=== PATIENT | male | born 1945 ===

== ENCOUNTER 2018-01-05 15:34 | Emergency (ER) | payer OTHER ==
--- NOTE | 2018-01-05 17:01 | RAD ---
PROCEDURE: Left Knee Radiographs. HISTORY: Posttraumatic pain. COMPARISON: None. FINDINGS: BONES: Normal. No fracture. JOINTS: Normal. No osteoarthritis. JOINT EFFUSION: No acute fracture large suprapatellar joint effusion. OTHER FINDINGS: None. IMPRESSION: No acute osseous or articular abnormalities. Large joint effusion
[2018-01-05] MEDS ORDERED: Bacitracin OINT 15GM TOP STA (17:19)
--- NOTE | 2018-01-05 17:28 | ED PDOC ---
HPI: Trauma/Fall - HPI Time Seen by Provider: 01/05/18 16:00 Chief Complaint (Nursing): Lower Extremity Problem/Injury Chief Complaint (Provider): Lower Extremity Problem/Injury History Per: Patient History/Exam Limitations: no limitations Injury Occurred (Timing): Just Before Arrival Additional Complaint(s): 72 year old male reports injuring his left knee and sustaining abrasions to his left elbow when he slipped and fell at work at [employer] prior to arrival. Patient states he fell down 4 steps on a staircase. He does not report pain at rest but has 8/10 localized pain to left knee with movement, without any radiation. Patient did not take any medication for relief and denies any head injury or LOC. No other complaints at present. PMD: Joe Fuentes MD Past Medical History Reviewed: Historical Data, Nursing Documentation, Vital Signs Vital Signs: Last Vital Signs Temp 97.9 F 01/05/18 17:29 Pulse 84 01/05/18 17:29 Resp 16 01/05/18 17:29 BP 147/87 01/05/18 17:29 Pulse Ox 98 01/05/18 17:46 - Medical History PMH: Cardia Arrhythmia, HTN, Hypercholesterolemia - Surgical History Other surgeries: procedure to right leg and right shoulder - Family History Family History: States: Unknown Family Hx - Social History Current smoker - smoking cessation education provided: No Alcohol: None Drugs: Denies - Immunization History Hx Tetanus Toxoid Vaccination: Yes - Home Medications Home Medications: Ambulatory Orders Medication Instructions Recorded Acetaminophen [Acetaminophen 8 650 mg PO Q8 PRN #21 tablet.er 01/05/18 Hour] traMADol [Ultram] 50 mg PO Q6 PRN #12 tab 01/05/18 - Allergies Allergies/Adverse Reactions: Allergies Allergy/AdvReac Type Severity Reaction Status Date / Time No Known Allergies Allergy Verified 01/05/18 16:14 Review of Systems ROS Statement: Except As Marked, All Systems Reviewed And Found Negative Musculoskeletal: Positive for: Leg Pain (left knee pain with movement), Other ( left elbow abrasions) Neurological: Negative for: Other (head injury or LOC) Physical Exam - Reviewed Nursing Documentation Reviewed: Yes Vital Signs Reviewed: Yes - Physical Exam Comments: GENERAL APPEARANCE: Patient is awake, alert, oriented x 3, in no acute distress. SKIN: Warm, dry; (-) cyanosis. NECK: Supple, FROM EXTREMITY: Left Arm: superficial abrasions to left posterior elbow. Normal ROM with minimal tenderness. (-) effusion or (-) active bleeding. Left Leg: left knee (+)suprapatellar effusion. Normal ROM with pain on flexion (-) erythema, (- ) warmth, (-) deformity, (-) instability on valgus or varus stress. (+) distal pulse. NEUROLOGIC: (+) distal sensation. RESPIRATORY: Lungs clear to auscultation bilaterally (-) rales (-) rhonchi (-) wheezing CARDIAC: (-) murmur ABDOMEN: Soft (-) tenderness (-) distention (-) guarding BACK: (-) midline tenderness NEURO: Mental status as above. (-) focal deficit. Speech clear (-) facial asymmetry (-) aphasia - ECG O2 Sat by Pulse Oximetry: 98 (RA) Pulse Ox Interpretation: Normal Medical Decision Making Medical Decision Making: Initial Impression: Acute knee pain, skin abrasions S/P fall Initial Plan: * Ultram 50mg PO (Patient not driving home) * Xray knee (left) Time: 1658 --Knee xray (left) FINDINGS: BONES: Normal. No fracture. JOINTS: Normal. No osteoarthritis. JOINT EFFUSION: No acute fracture large suprapatellar joint effusion. OTHER FINDINGS: None. IMPRESSION: No acute osseous or articular abnormalities. Large joint effusion Time: 1714 --Left elbow abrasions irrigated with saline. Bacitracin ointment and bandages applied to affect area. --Knee immobilizer and crutches ordered. Patient instructed on crutch walking by ED staff. NV intact after immobilizer placement. On exam, patient remains AAOx3, in no acute distress. On exam, neck is supple, lungs CTA, cardiac RRR, abdomen is soft and non-tender, neuro exam shows no focal findings. VSS, stable for discharge. Advised to follow up with primary care physician/ortho in 1-2 days without fail. Advised to take medication as prescribed. Return to the emergency room at any time for any new or worsening symptoms. Patient states he fully agrees with and understands discharge instructions. States that he agrees with the plan and disposition. Verbalized and repeated discharge instructions and plan. I have given the patient opportunity to ask any additional questions. Scribe Attestation: Documented by Coco Portillo, acting as a scribe for Charlene Zamorano PA-C. Provider Scribe Attestation: All medical record entries made by the Scribe were at my direction and personally dictated by me. I have reviewed the chart and agree that the record accurately reflects my personal performance of the history, physical exam, medical decision making, and the department course for this patient. I have also personally directed, reviewed, and agree with the discharge instructions and disposition. Disposition - Clinical Impression Clinical Impression: Knee pain, acute, Knee sprain, Fall down stairs - Patient ED Disposition Is Patient to be Admitted: No Counseled Patient/Family Regarding: Studies Performed, Diagnosis, Need For Followup, Rx Given - Disposition Referrals: Bessy Castillo MD [Staff Provider] - Disposition: Routine/Home Disposition Time: 17:15 Condition: STABLE Additional Instructions: FOLLOW UP WITH PMD/ORTHO IN 1-2 DAYS WITHOUT FAIL. RETURN TO ED WITH ANY NEW OR WORSENING SYMPTOMS. TAKE MEDICATION NEEDED FOR SYMPTOMS. REST ICE COMPRESS (IMMOBILIZER) ELEVATE Prescriptions: Acetaminophen [Acetaminophen 8 Hour] 650 mg PO Q8 PRN #21 tablet.er PRN Reason: Pain, Moderate (4-7) traMADol [Ultram] 50 mg PO Q6 PRN #12 tab PRN Reason: Pain, Severe (8-10) Instructions: Knee Immobilizer (DC), Knee Sprain (DC), Knee Pain (DC) Forms: [employer]he (Frisian), [facility] School/Work Excuse Print Language: MACEDONIAN - POA Present On Arrival: Falls Or Trauma
[2018-01-05 17:33] VITALS: BP 147/87; PULSE 84; RESP 16; TEMP 97.9
[2018-01-05 17:34] VITALS: O2SAT 98
== END 2018-01-05 18:21 | disposition home or self-care (01) ==
LOC: H.ER 15:34
DX: S80.212A Abrasion, left knee, initial encounter (principal); S50.312A Abrasion of left elbow, initial encounter; W10.9XXA Fall (on) (from) unspecified stairs and steps, initial encounter; Y99.0 Civilian activity done for income or pay; E78.00 Pure hypercholesterolemia, unspecified; I10 Essential (primary) hypertension
CPT/HCPCS: 29530; 73562; 99285; L1830

== ENCOUNTER 2018-01-09 11:24 | Inpatient (IN) | payer MEDICARE, OTHER ==
[2018-01-09 13:29] LABS: BASO # 0.1 K/uL (0.0-0.2); BASO % 0.6 % (0.0-2.0); EOS % 0.1 % (0.0-4.0); HEMOGLOBIN 12.2 g/dL (12.0-18.0); LYMPH # 1.5 K/uL (1.0-4.3); MEAN CELL VOLUME 95.7 fl (80.0-94.0); MEAN CORPUSCULAR HEMOGLOBIN 34.1 pg (27.0-31.0); MEAN CORPUSCULAR HGB CONC 35.7 g/dL (33.0-37.0); MEAN PLATELET VOLUME 9.3 fl (7.2-11.7); MONO # 1.4 K/uL (0.0-0.8); MONO % 10.1 % (0.0-10.0); NEUT # 10.6 K/uL (1.8-7.0); NEUT % 78.2 % (50.0-75.0); NRBC % 0.1 % (0.0-0.0); RBC 3.58 Mil/uL (4.40-5.90); RED CELL DISTRIBUTION WIDTH 13.4 % (11.5-14.5); WHITE BLOOD COUNT 13.6 K/uL (4.8-10.8)
[2018-01-09 13:35] LABS: ALB/GLOB RATIO 1.2 (1.0-2.1); ALBUMIN 4.3 g/dL (3.5-5.0); ALT/SGPT 25 U/L (21-72); AST/SGOT 28 U/L (17-59); BLOOD UREA NITROGEN 23 mg/dl (9-20); CALCIUM 9.5 mg/dL (8.4-10.2); GFR AFRICAN-AMERICAN > 60; GFR NON-AFRICAN AMERICAN 60
[2018-01-09 13:38] LABS: INR 1.8 (0.9-1.2); PROTHROMBIN TIME 19.8 Seconds (9.8-13.1)
[2018-01-09 13:39] LABS: PARTIAL THROMBOPLASTIN TIME 24.4 Seconds (25.6-37.1)
--- NOTE | 2018-01-09 13:39 | ED PDOC ---
HPI: General Adult Time Seen by Provider: 01/09/18 12:12 Chief Complaint (Nursing): Medical Clearance Chief Complaint (Provider): Lower Extremity Problem/Injury History Per: Patient History/Exam Limitations: no limitations Onset/Duration Of Symptoms: Days (x4) Current Symptoms Are (Timing): Still Present Additional Complaint(s): 72 y/o male with a PMHx of HTN, high cholesterol, and atrial fibrillation presents to the ED complaining of left knee pain, onset four days ago. Patient states on , he injured his left knee at work. After having x-rays performed, patient had been told he had a fracture and advised to follow up with Dr. Saldana. Patient states he had an MRI performed and was told by Dr. Saldana that he had torn his tendons. Patient is unable to put any weight on his left leg. Denies numbness, tingling, calf pain, chest pain, and shortness of breath. PMD: Joe Fuentes Past Medical History Reviewed: Historical Data, Nursing Documentation, Vital Signs Vital Signs: Last Vital Signs Temp 98.1 F 01/09/18 17:21 Pulse 97 H 01/09/18 21:50 Resp 17 01/09/18 19:45 BP 122/73 01/09/18 21:50 Pulse Ox 98 01/09/18 22:17 - Medical History PMH: Cardia Arrhythmia (A fibrillation), HTN, Hypercholesterolemia - Surgical History Surgical History: No Surg Hx - Family History Family History: States: Unknown Family Hx - Immunization History Hx Tetanus Toxoid Vaccination: Yes - Home Medications Home Medications: Ambulatory Orders Medication Instructions Recorded Acetaminophen [Acetaminophen 8 650 mg PO Q8 PRN #21 tablet.er 01/05/18 Hour] traMADol [Ultram] 50 mg PO Q6 PRN #12 tab 01/05/18 Apixaban [Eliquis] 5 mg PO Q12 01/09/18 Aspirin [Ecotrin] 81 mg PO Q48H 01/09/18 Metoprolol Tartrate [Lopressor] 25 mg PO Q12 01/09/18 Simvastatin [Zocor] 20 mg PO HS 01/09/18 Valsartan [Diovan] 160 mg PO DAILY 01/09/18 amLODIPine [Norvasc] 10 mg PO HS 01/09/18 hydroCHLOROthiazide [Hydrodiuril] 25 mg PO DAILY 01/09/18 - Allergies Allergies/Adverse Reactions: Allergies Allergy/AdvReac Type Severity Reaction Status Date / Time No Known Allergies Allergy Verified 01/09/18 12:13 Physical Exam - Reviewed Nursing Documentation Reviewed: Yes Vital Signs Reviewed: Yes - Physical Exam Appears: Positive for: No Acute Distress Head Exam: Positive for: ATRAUMATIC, NORMOCEPHALIC Skin: Positive for: Normal Color, Warm, Dry Eye Exam: Positive for: Normal appearance, EOMI, PERRL Neck: Positive for: Normal, Painless ROM Cardiovascular/Chest: Positive for: Regular Rate, Rhythm. Negative for: Murmur Respiratory: Positive for: Normal Breath Sounds. Negative for: Respiratory Distress Extremity: Positive for: Other (Left lower extremity is in a knee immobilizer. Doralis pedis pulses 2+ bilaterally.). Negative for: Pedal Edema (bilaterally) , Calf Tenderness Neurologic/Psych: Positive for: Alert, Oriented (x3). Negative for: Motor/ Sensory Deficits - Laboratory Results Result Diagrams: 01/09/18 13:20 01/09/18 13:20 - ECG ECG: Positive for: Interpreted By Me ECG Rhythm: Positive for: Sinus Rhythm. Negative for: ST/T Changes Rate: 82 O2 Sat by Pulse Oximetry: 98 (RA) Pulse Ox Interpretation: Normal - Radiology X-Ray: Interpreted by Me (CXR) X-Ray Interpretation: No Acute Disease - Progress ED Course And Treament: Case d/w Dr. Velasquez and requests pt. to be admitted under hospitalist service. Case d/w Dr. Szymanski and arrangements made for admission. Medical Decision Making Medical Decision Making: Time: 1320 Plan: -- Type and Screen -- EKG -- CMP -- CBC with differentials -- PTT -- Prothrombin Time -- CXR Portable -- Morphine 2 mg IVP -- Zofran Inj 4 mg IVP -- IV Insertion -- Urinalysis Time: 1450 GALLBLADDER US Findings: The liver is heterogeneous in echotexture and measures approximately 13 centimeters. Liver contour is relatively smooth in appearance. The gallbladder is mildly distended. No echogenic calculus or sludge identified. The gallbladder wall is not thickened and measures approximately 2 millimeters. No definite pericholecystic fluid identified. According to the technologist, the sonographic Live's sign was not present. The common bile duct measures 4.6 millimeters. No choledocholithiasis identified in the provided images. Limited visualization of the pancreas. Right kidney measures 12 x 7 x 6 centimeters. Anechoic structure in the lower pole likely a cyst measuring 1.7 centimeters. No hydronephrosis. The visualized portions of the IVC appear unremarkable. No aneurysmal dilatation within the visualized segments of the aorta. Impression: Mildly distended gallbladder without definite evidence of acute cholecystitis based on ultrasound findings. No cholelithiasis nor choledocholithiasis. Presumed cyst in the lower pole of the right kidney. Follow-up with ultrasound can be obtained as per clinical protocol. Time: 1456 CXR RESULTS FINDINGS: LUNGS: No focal airspace opacity. Left costophrenic angle not imaged. PLEURA: No significant pleural effusion identified, no pneumothorax apparent. CARDIOVASCULAR: Normal. OSSEOUS STRUCTURES: No significant abnormalities. VISUALIZED UPPER ABDOMEN: Upper abdomen is suboptimally evaluated. OTHER FINDINGS: None. IMPRESSION: No focal airspace opacity. Scribe Attestation: Documented by Paola Rodriguez, acting as a scribe for Glenn Penaloza PA-C. Provider Scribe Attestation: All medical record entries made by the Scribe were at my direction and personally dictated by me. I have reviewed the chart and agree that the record accurately reflects my personal performance of the history, physical exam, medical decision making, and the department course for this patient. I have also personally directed, reviewed, and agree with the discharge instructions and disposition. Disposition - Clinical Impression Clinical Impression: Quadriceps tendon rupture - Patient ED Disposition Is Patient to be Admitted: Yes - Disposition Disposition Time: 12:38 Condition: STABLE
[2018-01-09 14:15] LABS: SQUAMOUS EPITHIAL < 1 /hpf (0-5); URINE BILIRUBIN NEGATIVE (NEGATIVE); URINE BLOOD SMALL (NEGATIVE); URINE CLARITY SLIGHTY-CLOUDY (Clear); URINE COLOR AMBER (YELLOW); URINE GLUCOSE (UA) NEG (Normal); URINE LEUKOCYTE ESTERASE NEG Leu/uL (Negative); URINE PROTEIN 30 mg/dL (NEGATIVE)
--- NOTE | 2018-01-09 14:51 | US ---
Limited right upper quadrant ultrasound. History: Elevated bilirubin. Comparison: None. Technique: Ultrasound images of the gallbladder and the right upper quadrant were obtained and a limited basis. Doppler imaging was also performed. Findings: The liver is heterogeneous in echotexture and measures approximately 13 centimeters. Liver contour is relatively smooth in appearance. The gallbladder is mildly distended. No echogenic calculus or sludge identified. The gallbladder wall is not thickened and measures approximately 2 millimeters. No definite pericholecystic fluid identified. According to the technologist, the sonographic Live's sign was not present. The common bile duct measures 4.6 millimeters. No choledocholithiasis identified in the provided images. Limited visualization of the pancreas. Right kidney measures 12 x 7 x 6 centimeters. Anechoic structure in the lower pole likely a cyst measuring 1.7 centimeters. No hydronephrosis. The visualized portions of the IVC appear unremarkable. No aneurysmal dilatation within the visualized segments of the aorta. Impression: Mildly distended gallbladder without definite evidence of acute cholecystitis based on ultrasound findings. No cholelithiasis nor choledocholithiasis. Presumed cyst in the lower pole of the right kidney. Follow-up with ultrasound can be obtained as per clinical protocol.
--- NOTE | 2018-01-09 14:58 | RAD ---
HISTORY: clearance COMPARISON: No prior. FINDINGS: LUNGS: No focal airspace opacity. Left costophrenic angle not imaged. PLEURA: No significant pleural effusion identified, no pneumothorax apparent. CARDIOVASCULAR: Normal. OSSEOUS STRUCTURES: No significant abnormalities. VISUALIZED UPPER ABDOMEN: Upper abdomen is suboptimally evaluated. OTHER FINDINGS: None. IMPRESSION: No focal airspace opacity.
--- NOTE | 2018-01-09 15:44 | CP.PCM.HP ---
History of Present Illness - History of Present Illness History of Present Illness: 72 yo male with history of HTN, HLD and Atrial Fib came back to ER after MRI ordered by orthopedist showed ruptured quadricep tendon of the left knee. Patient was seen 01/05/18 in the ER because of left knee pain and swelling after falling 5 steps from the stairs. He was sent home and put on pain medication after Xray did not reveal any fracture. Saw an orthopedist, Dr Saldana, the next day who requested an MRI which was done today. Patient is for surgery on . Present on Admission - Present on Admission Any Indicators Present on Admission: No History of DVT/PE: No History of Uncontrolled Diabetes: No Urinary Catheter: No Decubitus Ulcer Present: No Review of Systems - Review of Systems All systems: reviewed and no additional remarkable complaints except (aside from those mentioned above, 12 point system review were negative by me) Past Patient History - Tetanus Immunizations Tetanus Immunization: Unknown - Past Social History Smoking Status: Never Smoked Chewing Tobacco Use: No Cigar Use: No Alcohol: None Drugs: Denies Home Situation {Lives}: With Family - CARDIAC Hx Cardia Arrhythmia: Yes (A fibrillation) Hx Hypercholesterolemia: Yes Hx Hypertension: Yes - PULMONARY Hx Respiratory Disorders: No - NEUROLOGICAL Hx Neurological Disorder: No - HEENT Hx HEENT Problems: No - RENAL Hx Chronic Kidney Disease: No - ENDOCRINE/METABOLIC Hx Endocrine Disorders: No - HEMATOLOGICAL/ONCOLOGICAL Hx Blood Disorders: No - INTEGUMENTARY Hx Dermatological Problems: No - MUSCULOSKELETAL/RHEUMATOLOGICAL Hx Musculoskeletal Disorders: No - GASTROINTESTINAL Hx Gastrointestinal Disorders: No - GENITOURINARY/GYNECOLOGICAL Hx Genitourinary Disorders: No - PSYCHIATRIC Hx Psychophysiologic Disorder: No Hx Substance Use: No - SURGICAL HISTORY Hx Surgeries: Yes Other/Comment: right foot surgery. right achilles tendon repair. repair of right rotator cuff - ANESTHESIA Hx Anesthesia: Yes Meds Allergies/Adverse Reactions: Allergies Allergy/AdvReac Type Severity Reaction Status Date / Time No Known Allergies Allergy Verified 01/09/18 12:13 Physical Exam - Constitutional Appears: No Acute Distress - Head Exam Head Exam: ATRAUMATIC - Eye Exam Eye Exam: absent: Scleral icterus - ENT Exam ENT Exam: Mucous Membranes Moist - Neck Exam Neck exam: Negative for: Meningismus - Respiratory Exam Respiratory Exam: absent: Rales, Rhonchi, Wheezes, Respiratory Distress - Cardiovascular Exam Cardiovascular Exam: REGULAR RHYTHM, +S1, +S2 - GI/Abdominal Exam GI & Abdominal Exam: Soft. absent: Tenderness - Rectal Exam Rectal Exam: Deferred - Extremities Exam Extremities exam: Positive for: joint swelling (swelling and tenderness on right knee), tenderness - Back Exam Back exam: NORMAL INSPECTION - Neurological Exam Neurological exam: Alert, Oriented x3 - Psychiatric Exam Psychiatric exam: Normal Affect - Skin Skin Exam: Dry, Intact Results - Vital Signs Recent Vital Signs: Last Vital Signs Temp 98.2 F 01/09/18 11:45 Pulse 83 01/09/18 11:45 Resp 20 01/09/18 11:45 BP 116/72 01/09/18 11:45 Pulse Ox 98 01/09/18 15:17 - Labs Result Diagrams: 01/09/18 13:20 01/09/18 13:20 Labs: Laboratory Results - last 24 hr 01/09/18 01/09/18 01/09/18 13:20 13:20 13:20 WBC 13.6 H RBC 3.58 L Hgb 12.2 Hct 34.3 L MCV 95.7 H MCH 34.1 H MCHC 35.7 RDW 13.4 Plt Count 217 MPV 9.3 Neut % (Auto) 78.2 H Lymph % (Auto) 11.0 L Mingo % (Auto) 10.1 H Eos % (Auto) 0.1 Baso % (Auto) 0.6 Neut # (Auto) 10.6 H Lymph # (Auto) 1.5 Mingo # (Auto) 1.4 H Eos # (Auto) 0.0 Baso # (Auto) 0.1 PT 19.8 H INR 1.8 H APTT 24.4 L Sodium 140 Potassium 3.8 Chloride 96 L Carbon Dioxide 34 H Anion Gap 14 BUN 23 H Creatinine 1.2 Est GFR ( Amer) > 60 Est GFR (Non-Af Amer) 60 Random Glucose 119 H Calcium 9.5 Total Bilirubin 1.7 H AST 28 ALT 25 Alkaline Phosphatase 51 Total Protein 7.8 Albumin 4.3 Globulin 3.5 Albumin/Globulin Ratio 1.2 Urine Color Urine Clarity Urine pH Ur Specific Goodrich Urine Protein Urine Glucose (UA) Urine Ketones Urine Blood Urine Nitrate Urine Bilirubin Urine Urobilinogen Ur Leukocyte Esterase Urine RBC (Auto) Urine Microscopic WBC Ur Squamous Epith Cells Hyaline Casts Blood Type Antibody Screen BBK History Checked 01/09/18 01/09/18 13:20 13:57 WBC RBC Hgb Hct MCV MCH MCHC RDW Plt Count MPV Neut % (Auto) Lymph % (Auto) Mingo % (Auto) Eos % (Auto) Baso % (Auto) Neut # (Auto) Lymph # (Auto) Mingo # (Auto) Eos # (Auto) Baso # (Auto) PT INR APTT Sodium Potassium Chloride Carbon Dioxide Anion Gap BUN Creatinine Est GFR ( Amer) Est GFR (Non-Af Amer) Random Glucose Calcium Total Bilirubin AST ALT Alkaline Phosphatase Total Protein Albumin Globulin Albumin/Globulin Ratio Urine Color Yenifer Urine Clarity Slighty-cloudy Urine pH 5.0 Ur Specific Goodrich 1.025 Urine Protein 30 Urine Glucose (UA) Neg Urine Ketones Negative Urine Blood Small Urine Nitrate Negative Urine Bilirubin Negative Urine Urobilinogen 4.0 Ur Leukocyte Esterase Neg Urine RBC (Auto) 4 H Urine Microscopic WBC 3 Ur Squamous Epith Cells < 1 Hyaline Casts 6-10 H Blood Type A POSITIVE Antibody Screen Negative BBK History Checked No verified bt Assessment & Plan - Assessment and Plan (Free Text) Assessment: 72 yo male with history of HTN, HLD and Atrial Fib came back to ER after MRI ordered by orthopedist showed ruptured quadricep tendon of the left knee. Patient was seen 01/05/18 in the ER because of left knee pain and swelling after falling 5 steps from the stairs. He was sent home and put on pain medication after Xray did not reveal any fracture. Saw an orthopedist, Dr Saldana, the next day who requested an MRI which was done today. Patient is for surgery on . 1. Torn Quadricep Tendon of Left Knee maintain immobilizer Ortho consult called by ER (Dr Saldana) cardiac clearance prior to surgery on 2. AFib rate controlled Metoprolol Tatrate 25mg Q 12hrs hold Eliquis Lovenox 100mg SC q 12hrs 3. HTN BP stable on Metoprolol, Amlodipine, HCTZ and Valsartan 4. HLD Lipitor 20mg PO
--- NOTE | 2018-01-09 16:13 | CP.PCM.CON ---
History of Present Illness - History of Present Illness History of Present Illness: Orthopedic consultation Dr. Velasquez 72M complains of left knee pain after work injury when he fell moving out of the way of closing doors on 01/05/2018. He says he had immediate pain to his left knee and he wasn't able to walk. Patient was seen by Dr. Velasquez and sent for MRI which shows left quad tendon tear. Patient is having continued pain in his left knee, and needs bridging with lovenox prior to OR for repair. Lives on 3rd floor walk up PMH: HTN, afib (on eliquis, last dose this am) PSH: right achilles, right shoulder NKDA Past Patient History - Tetanus Immunizations Tetanus Immunization: Unknown - Past Social History Smoking Status: Never Smoked Chewing Tobacco Use: No Cigar Use: No Alcohol: None Drugs: Denies Home Situation {Lives}: With Family - CARDIAC Hx Cardia Arrhythmia: Yes (A fibrillation) Hx Hypercholesterolemia: Yes Hx Hypertension: Yes - PULMONARY Hx Respiratory Disorders: No - NEUROLOGICAL Hx Neurological Disorder: No - HEENT Hx HEENT Problems: No - RENAL Hx Chronic Kidney Disease: No - ENDOCRINE/METABOLIC Hx Endocrine Disorders: No - HEMATOLOGICAL/ONCOLOGICAL Hx Blood Disorders: No - INTEGUMENTARY Hx Dermatological Problems: No - MUSCULOSKELETAL/RHEUMATOLOGICAL Hx Musculoskeletal Disorders: No - GASTROINTESTINAL Hx Gastrointestinal Disorders: No - GENITOURINARY/GYNECOLOGICAL Hx Genitourinary Disorders: No - PSYCHIATRIC Hx Psychophysiologic Disorder: No Hx Substance Use: No - SURGICAL HISTORY Hx Surgeries: Yes Other/Comment: right foot surgery. right achilles tendon repair. repair of right rotator cuff - ANESTHESIA Hx Anesthesia: Yes Meds Allergies/Adverse Reactions: Allergies Allergy/AdvReac Type Severity Reaction Status Date / Time No Known Allergies Allergy Verified 01/09/18 12:13 Physical Exam - Extremities Exam Additional comments: Left knee: immobilizer intact, moderate joint effusion, no erythema, no peripheral edema, +ROM ankle/toes, sensation intact, calves osft NT neg homans skin intact, tyron applied from toes to thigh. Results - Vital Signs Recent Vital Signs: Last Vital Signs Temp 98.2 F 01/09/18 11:45 Pulse 83 01/09/18 11:45 Resp 20 01/09/18 11:45 BP 116/72 01/09/18 11:45 Pulse Ox 98 01/09/18 15:49 - Labs Result Diagrams: 01/09/18 13:20 01/09/18 13:20 Labs: Laboratory Results - last 24 hr 01/09/18 01/09/18 01/09/18 13:20 13:20 13:20 WBC 13.6 H RBC 3.58 L Hgb 12.2 Hct 34.3 L MCV 95.7 H MCH 34.1 H MCHC 35.7 RDW 13.4 Plt Count 217 MPV 9.3 Neut % (Auto) 78.2 H Lymph % (Auto) 11.0 L Gove % (Auto) 10.1 H Eos % (Auto) 0.1 Baso % (Auto) 0.6 Neut # (Auto) 10.6 H Lymph # (Auto) 1.5 Gove # (Auto) 1.4 H Eos # (Auto) 0.0 Baso # (Auto) 0.1 PT 19.8 H INR 1.8 H APTT 24.4 L Sodium 140 Potassium 3.8 Chloride 96 L Carbon Dioxide 34 H Anion Gap 14 BUN 23 H Creatinine 1.2 Est GFR ( Amer) > 60 Est GFR (Non-Af Amer) 60 Random Glucose 119 H Calcium 9.5 Total Bilirubin 1.7 H AST 28 ALT 25 Alkaline Phosphatase 51 Total Protein 7.8 Albumin 4.3 Globulin 3.5 Albumin/Globulin Ratio 1.2 Urine Color Urine Clarity Urine pH Ur Specific Austin Urine Protein Urine Glucose (UA) Urine Ketones Urine Blood Urine Nitrate Urine Bilirubin Urine Urobilinogen Ur Leukocyte Esterase Urine RBC (Auto) Urine Microscopic WBC Ur Squamous Epith Cells Hyaline Casts Blood Type Antibody Screen BBK History Checked 01/09/18 01/09/18 13:20 13:57 WBC RBC Hgb Hct MCV MCH MCHC RDW Plt Count MPV Neut % (Auto) Lymph % (Auto) Gove % (Auto) Eos % (Auto) Baso % (Auto) Neut # (Auto) Lymph # (Auto) Gove # (Auto) Eos # (Auto) Baso # (Auto) PT INR APTT Sodium Potassium Chloride Carbon Dioxide Anion Gap BUN Creatinine Est GFR ( Amer) Est GFR (Non-Af Amer) Random Glucose Calcium Total Bilirubin AST ALT Alkaline Phosphatase Total Protein Albumin Globulin Albumin/Globulin Ratio Urine Color Yenifer Urine Clarity Slighty-cloudy Urine pH 5.0 Ur Specific Austin 1.025 Urine Protein 30 Urine Glucose (UA) Neg Urine Ketones Negative Urine Blood Small Urine Nitrate Negative Urine Bilirubin Negative Urine Urobilinogen 4.0 Ur Leukocyte Esterase Neg Urine RBC (Auto) 4 H Urine Microscopic WBC 3 Ur Squamous Epith Cells < 1 Hyaline Casts 6-10 H Blood Type A POSITIVE Antibody Screen Negative BBK History Checked No verified bt - Impressions Impression: Patient Name / ID : STORMY GREENBERG / [id number] Exam Date : 01/09/2018 08:37:56 ( Approved ) Study Comment : Sex / Age : M / [id number] Creator : Mani Cueto MD Dictator : Mani Cueto MD Transmitter Operator : Supervisor Looping : Mani Cueto MD Approver2 : Report Date : 01/09/2018 11:04:51 My Comment : MRI left knee History: Injury. Evaluate meniscus and quadriceps tendon. Comparison: None available. Technique: Multi-echo multiplanar sequences were performed through the left knee without the use of intravenous contrast. Findings: Apparent rupture of the anterior insertion of the distal quadriceps tendon from its insertion on the superior patella with tendon retraction measuring approximately 1.8 centimeters best seen on series 4, image 16. There appears to be interstitial tearing extending more proximally through the remainder of the tendon to the myotendinous junction with the posterior aspect of the tendon component appearing at least partially intact as demonstrated on series 4, image 14. There appears to be prominent hemorrhagic and/or hematogenous formation at that level measuring up to 2.8 centimeters with heterogeneously increased STIR signal as well as heterogeneous spleen increased T1 signal. Signal abnormality noted within the vastus musculature suggestive for muscle strain and or partial tearing. Patellar tendon is preserved. Large suprapatellar joint effusion with associated synovial debris and hemorrhage. Thinning and attenuation with increased signal seen within the visualized anterior cruciate ligament suggestive for a moderate grade sprain with some partial interstitial tearing. Low-grade sprain of the proximal attachment of the posterior cruciate ligament. Linear increased signal noted at the level of the body and posterior horn of the medial meniscus as demonstrated on series 4 images 7 through 10 suggestive for a small tear. Lateral meniscus is preserved. Moderate to high grade sprain of the medial collateral ligament. Lateral collateral ligament complex structures appear preserved. Moderate to high grade strains of the medial and lateral patellar retinaculum. Patellar cartilage is grossly preserved. Reticulation, edema, and fluid within the prepatellar soft tissues. Mild to moderate cartilage thinning and loss involving the medial compartment of the femorotibial joint space. Impression: 1. Apparent rupture of the anterior insertion of the distal quadriceps tendon from its insertion on the superior patella with tendon retraction measuring approximately 1.8 centimeters best seen on series 4, image 16. There appears to be interstitial tearing extending more proximally through the remainder of the tendon to the myotendinous junction with the posterior aspect of the tendon component appearing at least partially intact as demonstrated on series 4, image 14. There appears to be prominent hemorrhagic and/or hematogenous formation at that level measuring up to 2.8 centimeters with heterogeneously increased STIR signal as well as heterogeneous spleen increased T1 signal. Signal abnormality noted within the vastus musculature suggestive for muscle strain and or partial tearing. 2. Large suprapatellar joint effusion with associated synovial debris and hemorrhage. 3. Thinning and attenuation with increased signal seen within the visualized anterior cruciate ligament suggestive for a moderate grade sprain with some partial interstitial tearing. 4. Low-grade sprain of the proximal attachment of the posterior cruciate ligament. 5. Linear increased signal noted at the level of the body and posterior horn of the medial meniscus as demonstrated on series 4 images 7 through 10 suggestive for a small tear. 6. Moderate to high grade sprain of the medial collateral ligament. 7. Moderate to high grade strains of the medial and lateral patellar retinaculum. 8. Reticulation, edema, and fluid within the prepatellar soft tissues. 9. Mild to moderate cartilage thinning and loss involving the medial compartment of the femorotibial joint space. Assessment & Plan (1) Rupture of left quadriceps tendon Assessment and Plan: Plan for OR 01/12 eliquis held, on lovenox elevation, ice, knee immob at all times PT for crutch/walker ambulation pre op cardiology consultation pending f/u labs d/w Dr. Velasquez, agrees with above family at beside, verbalized understanding and agree to plan and procedure Status: Acute
[2018-01-09] MEDS: Enoxaparin 100 mg Syringe SC SCH (21:51)
[2018-01-10 06:21] LABS: BASO % 0.3 % (0.0-2.0); EOS # 0.1 K/uL (0.0-0.7); EOS % 0.8 % (0.0-4.0); HEMOGLOBIN 11.6 g/dL (12.0-18.0); LYMPH # 1.7 K/uL (1.0-4.3); MEAN CELL VOLUME 96.1 fl (80.0-94.0); MEAN CORPUSCULAR HEMOGLOBIN 33.2 pg (27.0-31.0); MEAN CORPUSCULAR HGB CONC 34.6 g/dL (33.0-37.0); MEAN PLATELET VOLUME 9.3 fl (7.2-11.7); MONO # 1.2 K/uL (0.0-0.8); MONO % 10.5 % (0.0-10.0); NEUT # 8.4 K/uL (1.8-7.0); NEUT % 73.4 % (50.0-75.0); RBC 3.5 Mil/uL (4.40-5.90); RED CELL DISTRIBUTION WIDTH 13.4 % (11.5-14.5); WHITE BLOOD COUNT 11.4 K/uL (4.8-10.8)
[2018-01-10 06:36] LABS: PROTHROMBIN TIME 17.5 Seconds (9.8-13.1)
[2018-01-10 06:37] LABS: INR 1.6 (0.9-1.2); PARTIAL THROMBOPLASTIN TIME 30.5 Seconds (25.6-37.1)
[2018-01-10 06:43] LABS: ALB/GLOB RATIO 1.1 (1.0-2.1); ALBUMIN 3.9 g/dL (3.5-5.0); ALT/SGPT 37 U/L (21-72); AST/SGOT 35 U/L (17-59); BLOOD UREA NITROGEN 25 mg/dl (9-20); CALCIUM 9.1 mg/dL (8.4-10.2); GFR AFRICAN-AMERICAN > 60; GFR NON-AFRICAN AMERICAN > 60
[2018-01-10] MEDS: Enoxaparin 100 mg Syringe SC SCH (08:41)
[2018-01-10] MEDS: Pantoprazole 40 mg EC Tab PO SCH (08:42)
[2018-01-10] MEDS: Oxycodone/Acetaminophen 5/325 mg Tab PO PRN ×2 (08:49→19:44)
--- NOTE | 2018-01-10 14:12 | CP.PCM.PN ---
Subjective - Date & Time of Evaluation Date of Evaluation: 01/10/18 Time of Evaluation: 14:10 - Subjective Subjective: Patient comfortable. Daughter at bedside. Tolerating PT well. Pain in knee improved with morphine, not controlled by 1 percocet. Denies CP/SOB/dizziness. Objective - Vital Signs/Intake and Output Vital Signs (last 24 hours): Temp Pulse Resp BP Pulse Ox 97.4 F L 86 19 126/73 94 L 01/10/18 08:12 01/10/18 08:41 01/10/18 08:12 01/10/18 08:41 01/10/18 08:12 - Medications Medications: Current Medications Acetaminophen (Tylenol 325mg Tab) 650 mg PO Q6 PRN PRN Reason: Pain, Mild (1-3) Acetaminophen (Tylenol 325mg Tab) 650 mg PO Q8 PRN PRN Reason: Pain, moderate (4-7) Amlodipine Besylate (Norvasc) 10 mg PO [facility] Last Admin: 01/09/18 22:45 Dose: 10 mg Atorvastatin Calcium (Lipitor) 20 mg PO DAILY [facility] Last Admin: 01/10/18 08:42 Dose: 20 mg Cholecalciferol (Vitamin D) 2,000 intlu PO DAILY [facility] Docusate Sodium (Colace) 100 mg PO BID [facility] Last Admin: 01/10/18 08:40 Dose: 100 mg Enoxaparin Sodium (Lovenox) 100 mg SC Q12 [facility] PRN Reason: Protocol Last Admin: 01/10/18 08:41 Dose: 100 mg Hydrochlorothiazide (Hydrodiuril) 25 mg PO DAILY [facility] Last Admin: 01/10/18 08:41 Dose: 25 mg Metoprolol Tartrate (Lopressor) 25 mg PO Q12 [facility] Last Admin: 01/10/18 08:41 Dose: 25 mg Morphine Sulfate (Morphine) 2 mg IVP DAILY PRN PRN Reason: Pain, moderate (4-7) Oxycodone/Acetaminophen (Percocet 5/325 Mg Tab) 1 tab PO Q4 PRN PRN Reason: Pain, moderate (4-7) Stop: 01/12/18 16:06 Last Admin: 01/10/18 08:49 Dose: 1 tab Pantoprazole Sodium (Protonix Ec Tab) 40 mg PO DAILY [facility] Last Admin: 01/10/18 08:42 Dose: 40 mg Tramadol HCl (Ultram) 50 mg PO Q6 PRN PRN Reason: Pain, severe (8-10) Last Admin: 01/10/18 05:16 Dose: 50 mg Valsartan (Diovan) 160 mg PO DAILY [facility] Last Admin: 01/10/18 08:41 Dose: 160 mg - Labs Labs: 01/10/18 05:40 01/10/18 05:40 PT 17.5 Seconds (9.8-13.1) H 01/10/18 05:40 INR 1.6 (0.9-1.2) H 01/10/18 05:40 APTT 30.5 Seconds (25.6-37.1) D 01/10/18 05:40 - Extremities Exam Additional comments: LLE: leg elevated, immobilizer intact, +ROM ankle/toes, sensation intact calves soft NT neg homans Assessment and Plan (1) Rupture of left quadriceps tendon Assessment & Plan: OR 01/12 pending cardiology optimization lovenox PT OOB VTE proph labs reviewed, wbc downtrending labs in am d/w DR. Velasquez, agrees with above Status: Acute (2) Vitamin D deficiency Assessment & Plan: supp Status: Acute
--- NOTE | 2018-01-10 14:46 | CP.PCM.PN ---
Subjective - Date & Time of Evaluation Date of Evaluation: 01/10/18 Time of Evaluation: 11:00 - Subjective Subjective: Patient was seen and examined at bedside. C/o uncontrolled pain with movement; however his pain is controlled when laying in bed. Denies any other symptoms at present. Denies cp, sob, n/v/d, lethargy, headache. Objective - Vital Signs/Intake and Output Vital Signs (last 24 hours): Temp Pulse Resp BP Pulse Ox 97.4 F L 86 19 126/73 94 L 01/10/18 08:12 01/10/18 08:41 01/10/18 08:12 01/10/18 08:41 01/10/18 08:12 - Medications Medications: Current Medications Acetaminophen (Tylenol 325mg Tab) 650 mg PO Q6 PRN PRN Reason: Pain, Mild (1-3) Acetaminophen (Tylenol 325mg Tab) 650 mg PO Q8 PRN PRN Reason: Pain, moderate (4-7) Amlodipine Besylate (Norvasc) 10 mg PO HS [facility] Last Admin: 01/09/18 22:45 Dose: 10 mg Atorvastatin Calcium (Lipitor) 20 mg PO DAILY [facility] Last Admin: 01/10/18 08:42 Dose: 20 mg Cholecalciferol (Vitamin D) 2,000 intlu PO DAILY [facility] Docusate Sodium (Colace) 100 mg PO BID [facility] Last Admin: 01/10/18 08:40 Dose: 100 mg Enoxaparin Sodium (Lovenox) 100 mg SC Q12 [facility] PRN Reason: Protocol Last Admin: 01/10/18 08:41 Dose: 100 mg Hydrochlorothiazide (Hydrodiuril) 25 mg PO DAILY [facility] Last Admin: 01/10/18 08:41 Dose: 25 mg Metoprolol Tartrate (Lopressor) 25 mg PO Q12 [facility] Last Admin: 01/10/18 08:41 Dose: 25 mg Morphine Sulfate (Morphine) 2 mg IVP DAILY PRN PRN Reason: Pain, moderate (4-7) Oxycodone/Acetaminophen (Percocet 5/325 Mg Tab) 1 tab PO Q4 PRN PRN Reason: Pain, moderate (4-7) Stop: 01/12/18 16:06 Last Admin: 01/10/18 08:49 Dose: 1 tab Pantoprazole Sodium (Protonix Ec Tab) 40 mg PO DAILY [facility] Last Admin: 01/10/18 08:42 Dose: 40 mg Tramadol HCl (Ultram) 50 mg PO Q6 PRN PRN Reason: Pain, severe (8-10) Last Admin: 01/10/18 05:16 Dose: 50 mg Valsartan (Diovan) 160 mg PO DAILY [facility] Last Admin: 01/10/18 08:41 Dose: 160 mg - Labs Labs: 01/10/18 05:40 01/10/18 05:40 PT 17.5 Seconds (9.8-13.1) H 01/10/18 05:40 INR 1.6 (0.9-1.2) H 01/10/18 05:40 APTT 30.5 Seconds (25.6-37.1) D 01/10/18 05:40 - Additional Findings Additional findings: Physical exam: Constitutional- cooperative, awake, alert Head- NCAT, PERRL Eye- PERRL, EOMI ENT- normal exam, MMM. Neck- normal inspection, supple, no JVD Respiratory- CTAB, no wheezes rales rhonchi Cardiovascular- irregular rate and rhythm, rate controlled, +s1, +s2, no M/R/G GI/Abdominal- normal bowel sounds, soft, no mass, no hsm Skin- warm, dry Extremities Exam- + Left knee immobilizer. normal capillary refill, normal inspection Neurological Exam- alert, awake, oriented Psych- normal mood, normal affect Assessment and Plan - Assessment and Plan (Free Text) Plan: Assessment: 72 yo male with history of HTN, HLD and Atrial Fib came back to ER after MRI ordered by orthopedist showed ruptured quadricep tendon of the left knee. Patient was seen 01/05/18 in the ER because of left knee pain and swelling after falling 5 steps from the stairs. He was sent home and put on pain medication after Xray did not reveal any fracture. Saw an orthopedist, Dr Saldana, the next day who requested an MRI which was done today. Patient is for surgery on . 1. Torn Quadricep Tendon of Left Knee maintain immobilizer Ortho consult called by ER (Dr Saldana) cardiac clearance prior to surgery on 01/12, to be seen by Dr. Chowdhury 2. AFib rate controlled Metoprolol Tatrate 25mg Q 12hrs hold Eliquis Lovenox 100mg SC q 12hrs 3. HTN BP stable on Metoprolol, Amlodipine, HCTZ and Valsartan 4. HLD Lipitor 20mg PO 5. DVT/stroke prophylaxis - Lovenox as above
[2018-01-10] MEDS: Cholecalciferol 1,000 INTLU TAB PO SCH (17:11)
[2018-01-10] MEDS ORDERED: Enoxaparin 100 mg Syringe SC ONE (21:00)
[2018-01-11 06:55] LABS: HEMOGLOBIN 11.2 g/dL (12.0-18.0); MEAN CELL VOLUME 96.3 fl (80.0-94.0); MEAN CORPUSCULAR HEMOGLOBIN 33.8 pg (27.0-31.0); MEAN CORPUSCULAR HGB CONC 35.1 g/dL (33.0-37.0); RBC 3.3 Mil/uL (4.40-5.90); RED CELL DISTRIBUTION WIDTH 13.2 % (11.5-14.5); WHITE BLOOD COUNT 10.5 K/uL (4.8-10.8)
[2018-01-11 07:02] LABS: INR 1.4 (0.9-1.2); PARTIAL THROMBOPLASTIN TIME 31.3 Seconds (25.6-37.1); PROTHROMBIN TIME 15.4 Seconds (9.8-13.1)
[2018-01-11 07:22] LABS: ALB/GLOB RATIO 1.1 (1.0-2.1); ALBUMIN 3.8 g/dL (3.5-5.0); ALT/SGPT 40 U/L (21-72); AST/SGOT 37 U/L (17-59); BLOOD UREA NITROGEN 25 mg/dl (9-20); CALCIUM 8.7 mg/dL (8.4-10.2); GFR AFRICAN-AMERICAN > 60; GFR NON-AFRICAN AMERICAN > 60
[2018-01-11] MEDS ORDERED: Enoxaparin 100 mg Syringe SC ONE (09:00)
[2018-01-11] MEDS: Cholecalciferol 1,000 INTLU TAB PO SCH (09:39)
[2018-01-11] MEDS: Pantoprazole 40 mg EC Tab PO SCH (09:39)
--- NOTE | 2018-01-11 13:03 | CP.PCM.PN ---
Subjective - Date & Time of Evaluation Date of Evaluation: 01/11/18 Time of Evaluation: 12:00 - Subjective Subjective: Patient was seen and examined OOB to chair. States that his pain is controlled. He is complaining of some constipation however. Denies any other symptoms at present. Denies cp, sob, n/v/d, lethargy, headache. Objective - Vital Signs/Intake and Output Vital Signs (last 24 hours): Temp Pulse Resp BP Pulse Ox 98.8 F 93 H 20 119/69 95 01/11/18 08:00 01/11/18 09:40 01/11/18 08:00 01/11/18 09:40 01/11/18 08:00 - Medications Medications: Current Medications Acetaminophen (Tylenol 325mg Tab) 650 mg PO Q6 PRN PRN Reason: Pain, Mild (1-3) Acetaminophen (Tylenol 325mg Tab) 650 mg PO Q8 PRN PRN Reason: Pain, moderate (4-7) Amlodipine Besylate (Norvasc) 10 mg PO HS [facility] Last Admin: 01/10/18 21:14 Dose: 10 mg Atorvastatin Calcium (Lipitor) 20 mg PO [facility] Cholecalciferol (Vitamin D) 2,000 intlu PO DAILY [facility] Last Admin: 01/11/18 09:39 Dose: 2,000 intlu Docusate Sodium (Colace) 100 mg PO BID [facility] Last Admin: 01/11/18 09:38 Dose: 100 mg Hydrochlorothiazide (Hydrodiuril) 25 mg PO DAILY [facility] Last Admin: 01/11/18 09:39 Dose: 25 mg Metoprolol Tartrate (Lopressor) 25 mg PO Q12 [facility] Last Admin: 01/11/18 09:40 Dose: 25 mg Morphine Sulfate (Morphine) 2 mg IVP DAILY PRN PRN Reason: Pain, moderate (4-7) Oxycodone/Acetaminophen (Percocet 5/325 Mg Tab) 1 tab PO Q4 PRN PRN Reason: Pain, moderate (4-7) Stop: 01/12/18 16:06 Last Admin: 01/10/18 19:44 Dose: 1 tab Pantoprazole Sodium (Protonix Ec Tab) 40 mg PO DAILY [facility] Last Admin: 01/11/18 09:39 Dose: 40 mg Tramadol HCl (Ultram) 50 mg PO Q6 PRN PRN Reason: Pain, severe (8-10) Last Admin: 01/10/18 05:16 Dose: 50 mg Valsartan (Diovan) 160 mg PO DAILY [facility] Last Admin: 01/11/18 09:38 Dose: 160 mg - Labs Labs: 01/11/18 06:15 01/11/18 06:15 PT 15.4 Seconds (9.8-13.1) H 01/11/18 06:15 INR 1.4 (0.9-1.2) H 01/11/18 06:15 APTT 31.3 Seconds (25.6-37.1) 01/11/18 06:15 - Additional Findings Additional findings: Physical exam: Constitutional- cooperative, awake, alert Head- NCAT, PERRL Eye- PERRL, EOMI ENT- normal exam, MMM. Neck- normal inspection, supple, no JVD Respiratory- CTAB, no wheezes rales rhonchi Cardiovascular- irregular rate and rhythm, rate controlled, +s1, +s2, no M/R/G GI/Abdominal- normal bowel sounds, soft, no mass, no hsm Skin- warm, dry Extremities Exam- + Left knee immobilizer. normal capillary refill, normal inspection Neurological Exam- alert, awake, oriented Psych- normal mood, normal affect Assessment and Plan - Assessment and Plan (Free Text) Plan: 72 yo male with history of HTN, HLD and Atrial Fib came back to ER after MRI ordered by orthopedist showed ruptured quadricep tendon of the left knee. Patient was seen 01/05/18 in the ER because of left knee pain and swelling after falling 5 steps from the stairs. He was sent home and put on pain medication after Xray did not reveal any fracture. Saw an orthopedist, Dr Saldana, the next day who requested an MRI which was done today. Patient is for surgery on . 1. Torn Quadricep Tendon of Left Knee maintain immobilizer Ortho consult called by ER (Dr Saldana) cardiac clearance prior to surgery on 01/12, to be seen by Dr. Alanis 2. AFib rate controlled Metoprolol Tatrate 25mg Q 12hrs hold Eliquis Lovenox D/C after the morning dose today in preparation for surgery in AM 3. HTN BP stable on Metoprolol, Amlodipine, HCTZ and Valsartan 4. HLD Lipitor 20mg PO 5. DVT/stroke prophylaxis - SCDs
[2018-01-11] MEDS: Oxycodone/Acetaminophen 5/325 mg Tab PO PRN (13:48)
[2018-01-11] MEDS ORDERED: POLYETHYLENE GLYCOL 3350 17 GM/Dose PACKET PO PRN (13:54)
--- NOTE | 2018-01-11 14:46 | CP.PCM.PN ---
Subjective - Date & Time of Evaluation Date of Evaluation: 01/11/18 Time of Evaluation: 13:00 - Subjective Subjective: Patient seen and examined at bedside comfortable. Daughter is at bedside translating for patient. Pain is well controlled. Tolerating PT, ambulating with crutches well. C/o constipation. No other complaints. Objective - Vital Signs/Intake and Output Vital Signs (last 24 hours): Temp Pulse Resp BP Pulse Ox 98.8 F 93 H 20 119/69 95 01/11/18 08:00 01/11/18 09:40 01/11/18 08:00 01/11/18 09:40 01/11/18 08:00 - Medications Medications: Current Medications Acetaminophen (Tylenol 325mg Tab) 650 mg PO Q6 PRN PRN Reason: Pain, Mild (1-3) Acetaminophen (Tylenol 325mg Tab) 650 mg PO Q8 PRN PRN Reason: Pain, moderate (4-7) Amlodipine Besylate (Norvasc) 10 mg PO HS [facility] Last Admin: 01/10/18 21:14 Dose: 10 mg Atorvastatin Calcium (Lipitor) 20 mg PO [facility] Cholecalciferol (Vitamin D) 2,000 intlu PO DAILY [facility] Last Admin: 01/11/18 09:39 Dose: 2,000 intlu Docusate Sodium (Colace) 100 mg PO BID [facility] Last Admin: 01/11/18 09:38 Dose: 100 mg Hydrochlorothiazide (Hydrodiuril) 25 mg PO DAILY [facility] Last Admin: 01/11/18 09:39 Dose: 25 mg Metoprolol Tartrate (Lopressor) 25 mg PO Q12 [facility] Last Admin: 01/11/18 09:40 Dose: 25 mg Morphine Sulfate (Morphine) 2 mg IVP DAILY PRN PRN Reason: Pain, moderate (4-7) Oxycodone/Acetaminophen (Percocet 5/325 Mg Tab) 1 tab PO Q4 PRN PRN Reason: Pain, moderate (4-7) Stop: 01/12/18 16:06 Last Admin: 01/11/18 13:48 Dose: 1 tab Pantoprazole Sodium (Protonix Ec Tab) 40 mg PO DAILY [facility] Last Admin: 01/11/18 09:39 Dose: 40 mg Polyethylene Glycol (Miralax) 17 gm PO BID PRN PRN Reason: Constipation Tramadol HCl (Ultram) 50 mg PO Q6 PRN PRN Reason: Pain, severe (8-10) Last Admin: 01/10/18 05:16 Dose: 50 mg Valsartan (Diovan) 160 mg PO DAILY [facility] Last Admin: 01/11/18 09:38 Dose: 160 mg - Labs Labs: 01/11/18 06:15 01/11/18 06:15 PT 15.4 Seconds (9.8-13.1) H 01/11/18 06:15 INR 1.4 (0.9-1.2) H 01/11/18 06:15 APTT 31.3 Seconds (25.6-37.1) 01/11/18 06:15 - Extremities Exam Additional comments: L knee: Dressings CDI, knee immobilizer intact ROM restricted Sensation intact SP/DP?TN Motor intact EHL/FHL/TA/G pedal pulses intact comps soft NT Assessment and Plan (1) Quadriceps tendon rupture Assessment & Plan: -Plan for OR tomorrow morning for L quad tendon repair -Cardiac clearance, echo ordered -NPO past MN tonight -miralax for constipation -maintain knee immobilizer -ice and elevate -PT/OT NWB LLE -above d/w Dr. Velasquez in agreement Status: Acute
--- NOTE | 2018-01-11 18:21 | CP.PCM.CON ---
History of Present Illness - History of Present Illness History of Present Illness: patient seen/examined. full consult to follow. history of atrial fibrillation controlled on Eliquis, HTN presents with L leg injury, has a quadriceps tear. He will have surgery tomorrow. currently well compensated and no evidence of angina or ischemia echocardiogram reveals normal left ventricular function. No cardiovascular contraindication to the planned surgery. anticoagulation after surgery to prevent risk of CVA. Past Patient History - Tetanus Immunizations Tetanus Immunization: Unknown - Past Medical History & Family History Past Medical History?: Yes - Past Social History Smoking Status: Never Smoked - CARDIAC Hx Cardia Arrhythmia: Yes (A fibrillation) Hx Hypercholesterolemia: Yes Hx Hypertension: Yes - PULMONARY Hx Respiratory Disorders: No - NEUROLOGICAL Hx Neurological Disorder: No - HEENT Hx HEENT Problems: No - RENAL Hx Chronic Kidney Disease: No - ENDOCRINE/METABOLIC Hx Endocrine Disorders: No - HEMATOLOGICAL/ONCOLOGICAL Hx Blood Disorders: No - INTEGUMENTARY Hx Dermatological Problems: No - MUSCULOSKELETAL/RHEUMATOLOGICAL Hx Musculoskeletal Disorders: Yes Hx Falls: No Other/Comment: right achilles tendon repair, right shoulder rotator cuff repair - GASTROINTESTINAL Hx Gastrointestinal Disorders: No - GENITOURINARY/GYNECOLOGICAL Hx Genitourinary Disorders: No - PSYCHIATRIC Hx Psychophysiologic Disorder: No Hx Substance Use: No - SURGICAL HISTORY Hx Surgeries: Yes Hx Orthopedic Surgery: Yes (right achilles tendon repair, right shoulder rotator cuff repair) Other/Comment: right foot surgery. right achilles tendon repair. repair of right rotator cuff - ANESTHESIA Hx Anesthesia: Yes Hx Anesthesia Reactions: Yes Hx Malignant Hyperthermia: No Has any member of the family had a problem w/ anesthesia?: No Meds Allergies/Adverse Reactions: Allergies Allergy/AdvReac Type Severity Reaction Status Date / Time No Known Allergies Allergy Verified 01/09/18 12:13 - Medications Medications: Current Medications Acetaminophen (Tylenol 325mg Tab) 650 mg PO Q6 PRN PRN Reason: Pain, Mild (1-3) Acetaminophen (Tylenol 325mg Tab) 650 mg PO Q8 PRN PRN Reason: Pain, moderate (4-7) Amlodipine Besylate (Norvasc) 10 mg PO HS [facility] Last Admin: 01/10/18 21:14 Dose: 10 mg Atorvastatin Calcium (Lipitor) 20 mg PO [facility] Cholecalciferol (Vitamin D) 2,000 intlu PO DAILY [facility] Last Admin: 01/11/18 09:39 Dose: 2,000 intlu Docusate Sodium (Colace) 100 mg PO BID [facility] Last Admin: 01/11/18 17:17 Dose: 100 mg Hydrochlorothiazide (Hydrodiuril) 25 mg PO DAILY [facility] Last Admin: 01/11/18 09:39 Dose: 25 mg Metoprolol Tartrate (Lopressor) 25 mg PO Q12 [facility] Last Admin: 01/11/18 09:40 Dose: 25 mg Morphine Sulfate (Morphine) 2 mg IVP DAILY PRN PRN Reason: Pain, moderate (4-7) Oxycodone/Acetaminophen (Percocet 5/325 Mg Tab) 1 tab PO Q4 PRN PRN Reason: Pain, moderate (4-7) Stop: 01/12/18 16:06 Last Admin: 01/11/18 13:48 Dose: 1 tab Pantoprazole Sodium (Protonix Ec Tab) 40 mg PO DAILY [facility] Last Admin: 01/11/18 09:39 Dose: 40 mg Polyethylene Glycol (Miralax) 17 gm PO BID PRN PRN Reason: Constipation Last Admin: 01/11/18 15:37 Dose: 17 gm Tramadol HCl (Ultram) 50 mg PO Q6 PRN PRN Reason: Pain, severe (8-10) Last Admin: 01/10/18 05:16 Dose: 50 mg Valsartan (Diovan) 160 mg PO DAILY [facility] Last Admin: 01/11/18 09:38 Dose: 160 mg Results - Vital Signs Recent Vital Signs: Last Vital Signs Temp 100.2 F H 01/11/18 16:27 Pulse 82 01/11/18 16:27 Resp 20 01/11/18 16:27 BP 136/73 01/11/18 16:27 Pulse Ox 96 01/11/18 16:27 - Labs Result Diagrams: 01/11/18 06:15 01/11/18 06:15 Labs: Laboratory Results - last 24 hr 01/11/18 01/11/18 01/11/18 06:15 06:15 06:15 WBC 10.5 RBC 3.30 L Hgb 11.2 L Hct 31.8 L MCV 96.3 H MCH 33.8 H MCHC 35.1 RDW 13.2 Plt Count 229 PT 15.4 H INR 1.4 H APTT 31.3 Sodium 136 Potassium 3.6 Chloride 95 L Carbon Dioxide 31 H Anion Gap 14 BUN 25 H Creatinine 1.0 Est GFR ( Amer) > 60 Est GFR (Non-Af Amer) > 60 Random Glucose 126 H Calcium 8.7 Total Bilirubin 1.8 H AST 37 ALT 40 Alkaline Phosphatase 56 Total Protein 7.2 Albumin 3.8 Globulin 3.3 Albumin/Globulin Ratio 1.1
--- NOTE | 2018-01-11 18:22 | CP.PCM.CON ---
Past Patient History - Tetanus Immunizations Tetanus Immunization: Unknown - Past Medical History & Family History Past Medical History?: Yes - Past Social History Smoking Status: Never Smoked - CARDIAC Hx Cardia Arrhythmia: Yes (A fibrillation) Hx Hypercholesterolemia: Yes Hx Hypertension: Yes - PULMONARY Hx Respiratory Disorders: No - NEUROLOGICAL Hx Neurological Disorder: No - HEENT Hx HEENT Problems: No - RENAL Hx Chronic Kidney Disease: No - ENDOCRINE/METABOLIC Hx Endocrine Disorders: No - HEMATOLOGICAL/ONCOLOGICAL Hx Blood Disorders: No - INTEGUMENTARY Hx Dermatological Problems: No - MUSCULOSKELETAL/RHEUMATOLOGICAL Hx Musculoskeletal Disorders: Yes Hx Falls: No Other/Comment: right achilles tendon repair, right shoulder rotator cuff repair - GASTROINTESTINAL Hx Gastrointestinal Disorders: No - GENITOURINARY/GYNECOLOGICAL Hx Genitourinary Disorders: No - PSYCHIATRIC Hx Psychophysiologic Disorder: No Hx Substance Use: No - SURGICAL HISTORY Hx Surgeries: Yes Hx Orthopedic Surgery: Yes (right achilles tendon repair, right shoulder rotator cuff repair) Other/Comment: right foot surgery. right achilles tendon repair. repair of right rotator cuff - ANESTHESIA Hx Anesthesia: Yes Hx Anesthesia Reactions: Yes Hx Malignant Hyperthermia: No Has any member of the family had a problem w/ anesthesia?: No Meds Allergies/Adverse Reactions: Allergies Allergy/AdvReac Type Severity Reaction Status Date / Time No Known Allergies Allergy Verified 01/09/18 12:13 - Medications Medications: Current Medications Acetaminophen (Tylenol 325mg Tab) 650 mg PO Q6 PRN PRN Reason: Pain, Mild (1-3) Acetaminophen (Tylenol 325mg Tab) 650 mg PO Q8 PRN PRN Reason: Pain, moderate (4-7) Amlodipine Besylate (Norvasc) 10 mg PO [facility] Last Admin: 01/10/18 21:14 Dose: 10 mg Atorvastatin Calcium (Lipitor) 20 mg PO [facility] Cholecalciferol (Vitamin D) 2,000 intlu PO DAILY [facility] Last Admin: 01/11/18 09:39 Dose: 2,000 intlu Docusate Sodium (Colace) 100 mg PO BID [facility] Last Admin: 01/11/18 17:17 Dose: 100 mg Hydrochlorothiazide (Hydrodiuril) 25 mg PO DAILY [facility] Last Admin: 01/11/18 09:39 Dose: 25 mg Metoprolol Tartrate (Lopressor) 25 mg PO Q12 [facility] Last Admin: 01/11/18 09:40 Dose: 25 mg Morphine Sulfate (Morphine) 2 mg IVP DAILY PRN PRN Reason: Pain, moderate (4-7) Oxycodone/Acetaminophen (Percocet 5/325 Mg Tab) 1 tab PO Q4 PRN PRN Reason: Pain, moderate (4-7) Stop: 01/12/18 16:06 Last Admin: 01/11/18 13:48 Dose: 1 tab Pantoprazole Sodium (Protonix Ec Tab) 40 mg PO DAILY [facility] Last Admin: 01/11/18 09:39 Dose: 40 mg Polyethylene Glycol (Miralax) 17 gm PO BID PRN PRN Reason: Constipation Last Admin: 01/11/18 15:37 Dose: 17 gm Tramadol HCl (Ultram) 50 mg PO Q6 PRN PRN Reason: Pain, severe (8-10) Last Admin: 01/10/18 05:16 Dose: 50 mg Valsartan (Diovan) 160 mg PO DAILY [facility] Last Admin: 01/11/18 09:38 Dose: 160 mg Results - Vital Signs Recent Vital Signs: Last Vital Signs Temp 100.2 F H 01/11/18 16:27 Pulse 82 01/11/18 16:27 Resp 20 01/11/18 16:27 BP 136/73 01/11/18 16:27 Pulse Ox 96 01/11/18 16:27 - Labs Result Diagrams: 01/11/18 06:15 01/11/18 06:15 Labs: Laboratory Results - last 24 hr 01/11/18 01/11/18 01/11/18 06:15 06:15 06:15 WBC 10.5 RBC 3.30 L Hgb 11.2 L Hct 31.8 L MCV 96.3 H MCH 33.8 H MCHC 35.1 RDW 13.2 Plt Count 229 PT 15.4 H INR 1.4 H APTT 31.3 Sodium 136 Potassium 3.6 Chloride 95 L Carbon Dioxide 31 H Anion Gap 14 BUN 25 H Creatinine 1.0 Est GFR ( Amer) > 60 Est GFR (Non-Af Amer) > 60 Random Glucose 126 H Calcium 8.7 Total Bilirubin 1.8 H AST 37 ALT 40 Alkaline Phosphatase 56 Total Protein 7.2 Albumin 3.8 Globulin 3.3 Albumin/Globulin Ratio 1.1
[2018-01-11] MEDS: Cefepime 1 GM in Sodium Chloride 0.9% 100 ML IVPB SCH (21:05)
[2018-01-12] MEDS: Cefepime 1 GM in Sodium Chloride 0.9% 100 ML IVPB SCH ×4 (02:00→11:30)
[2018-01-12 05:59] LABS: HEMOGLOBIN 10.8 g/dL (12.0-18.0); MEAN CELL VOLUME 95.4 fl (80.0-94.0); MEAN CORPUSCULAR HEMOGLOBIN 33.9 pg (27.0-31.0); MEAN CORPUSCULAR HGB CONC 35.5 g/dL (33.0-37.0); RBC 3.17 Mil/uL (4.40-5.90); RED CELL DISTRIBUTION WIDTH 13.2 % (11.5-14.5); WHITE BLOOD COUNT 10.6 K/uL (4.8-10.8)
[2018-01-12 06:20] LABS: ALB/GLOB RATIO 1.1 (1.0-2.1); ALBUMIN 3.8 g/dL (3.5-5.0); ALT/SGPT 46 U/L (21-72); AST/SGOT 40 U/L (17-59); BLOOD UREA NITROGEN 17 mg/dl (9-20); CALCIUM 8.5 mg/dL (8.4-10.2); GFR AFRICAN-AMERICAN > 60; GFR NON-AFRICAN AMERICAN > 60
[2018-01-12 06:29] LABS: INR 1.3 (0.9-1.2); PARTIAL THROMBOPLASTIN TIME 27.6 Seconds (25.6-37.1); PROTHROMBIN TIME 14.7 Seconds (9.8-13.1)
[2018-01-12] MEDS ORDERED: Propofol 10 mg/ml Inj (20 ML) ONE (07:19)
[2018-01-12] MEDS ORDERED: Succinylcholine 200 mg/10 ml Inj IV ONE (07:20)
[2018-01-12] MEDS ORDERED: ePHEDrine 50 mg/ml Inj ONE (07:20)
[2018-01-12] MEDS ORDERED: Midazolam 2 MG/2 ML VIAL ONE (07:20)
[2018-01-12] MEDS ORDERED: Rocuronium 10 mg/ml (5 ml) ONE (07:20)
[2018-01-12] MEDS ORDERED: Bupivacaine HCl 0.5% PF (10 ml) Inj ONE (07:40)
[2018-01-12] MEDS ORDERED: GELATIN SPONGE,ABSORB/PORCINE 1 EACH SPONGE TP ONE (07:40)
[2018-01-12] MEDS ORDERED: Potassium Chl 20 mEq in D5-NS 1,000 ML IV SCH (08:00)
[2018-01-12] MEDS ORDERED: Lactated Ringer's 1,000 ML IV ONE (08:10)
[2018-01-12] MEDS: Pantoprazole 40 mg EC Tab PO SCH (08:33)
[2018-01-12] MEDS: Cholecalciferol 1,000 INTLU TAB PO SCH (08:33)
[2018-01-12] MEDS ORDERED: Neostigmine 1:1000 (1 mg/ml) Inj ONE (08:34)
[2018-01-12] MEDS ORDERED: Bacitracin Opht OINT 3.5GM OU ONE (09:49)
[2018-01-12] MEDS ORDERED: Sodium Chloride 0.45% 1,000 ML IV ONE (09:54)
[2018-01-12] MEDS ORDERED: Lactated Ringer's 500 ML IV ONE (09:54)
[2018-01-12] MEDS ORDERED: oxyCODONE 10 mg Immediate Release Tab PO PRN (10:10)
[2018-01-12] MEDS ORDERED: Lactated Ringer's 1,000 ML IV SCH (10:15)
[2018-01-12] MEDS ORDERED: HYDROmorphone 0.5 mg/0.5 ml ISec IVP PRN (10:59)
--- NOTE | 2018-01-12 11:05 | PCM.ANESB3 ---
Femoral Nerve Block - Femoral Nerve Block Date of Procedure: 01/12/18 Procedure Performed: Femoral Nerve Block Left - Procedure Femoral Nerve Block: The procedure was explained to the patient that it is for the post-operative pain management. Consent was obtained after a thorough discussion with the patient regarding the benefits and possible complications of local anesthetic block of the femoral nerve at the inguinal crease area. The patient was brought to the operating room and standard monitors were applied. Time-out was held with the circulating nurse to confirm the correct surgery and the appropriate block. After applying oxygen by nasal cannula and administering IV Sedation, patient was placed in supine position with fully extended lower extremities and the ___left groin exposed. The femoral artery was then carefully palpated. The ultrasound transducer was then applied to this area in the transverse plane and the femoral nerve was visualized lateral to the femoral artery and underneath the fascia iliaca. After thorough identification, the inguinal crease area was prepped with chloroprep solution. At this point, a #22 gauge Stimuplex 2-inch needle was inserted immediately lateral to the femoral artery pulse at the inguinal crease and advanced perpendicularly. The needle was inserted to the ultrasound transducer in-plane towards the femoral nerve in a [id number] direction. Needle advancement was performed carefully under direct ultrasound visualization. Nerve stimulator was used and twitch of the quadriceps muscle was obtained at current of __0.4___ MA. After negative aspiration, ___5__cc of ___0.375__% Ropivavacine was injected and this was followed with ____20__ cc of ___0.375____ % _ _Ropivacaine . Under ultrasound guidance the local anesthetics were observed spreading below fascia iliaca and around the femoral nerve. The needle was removed intact and sterile dressing was applied. The patient tolerated the femoral nerve block well with stable vital signs.
--- NOTE | 2018-01-12 15:34 | CP.PCM.DIS ---
Provider - Provider Date of Admission: 01/09/18 15:07 Attending physician: Cruz Szymanski MD Primary care physician: Dr. Joe Fuentes MD Consults: Dr. Zeke Floyd Time Spent in preparation of Discharge (in minutes): 15 Hospital Course - Lab Results Lab Results: Most Recent Lab Values WBC 10.6 K/uL (4.8-10.8) 01/12/18 05:40 RBC 3.17 Mil/uL (4.40-5.90) L 01/12/18 05:40 Hgb 10.8 g/dL (12.0-18.0) L 01/12/18 05:40 Hct 30.3 % (35.0-51.0) L 01/12/18 05:40 MCV 95.4 fl (80.0-94.0) H 01/12/18 05:40 MCH 33.9 pg (27.0-31.0) H 01/12/18 05:40 MCHC 35.5 g/dL (33.0-37.0) 01/12/18 05:40 RDW 13.2 % (11.5-14.5) 01/12/18 05:40 Plt Count 249 K/uL (130-400) 01/12/18 05:40 MPV 9.3 fl (7.2-11.7) 01/10/18 05:40 Neut % (Auto) 73.4 % (50.0-75.0) 01/10/18 05:40 Lymph % (Auto) 15.0 % (20.0-40.0) L 01/10/18 05:40 [place] % (Auto) 10.5 % (0.0-10.0) H 01/10/18 05:40 Eos % (Auto) 0.8 % (0.0-4.0) 01/10/18 05:40 Baso % (Auto) 0.3 % (0.0-2.0) 01/10/18 05:40 Neut # (Auto) 8.4 K/uL (1.8-7.0) H 01/10/18 05:40 Lymph # (Auto) 1.7 K/uL (1.0-4.3) 01/10/18 05:40 [place] # (Auto) 1.2 K/uL (0.0-0.8) H 01/10/18 05:40 Eos # (Auto) 0.1 K/uL (0.0-0.7) 01/10/18 05:40 Baso # (Auto) 0.0 K/uL (0.0-0.2) 01/10/18 05:40 PT 14.7 Seconds (9.8-13.1) H 01/12/18 05:40 INR 1.3 (0.9-1.2) H 01/12/18 05:40 APTT 27.6 Seconds (25.6-37.1) 01/12/18 05:40 Sodium 134 mmol/l (132-148) 01/12/18 05:40 Potassium 3.4 MMOL/L (3.6-5.0) L 01/12/18 05:40 Chloride 95 mmol/L (98-107) L 01/12/18 05:40 Carbon Dioxide 32 mmol/L (22-30) H 01/12/18 05:40 Anion Gap 10 (10-20) 01/12/18 05:40 BUN 17 mg/dl (9-20) 01/12/18 05:40 Creatinine 0.9 mg/dl (0.8-1.5) 01/12/18 05:40 Est GFR ( Amer) > 60 01/12/18 05:40 Est GFR (Non-Af Amer) > 60 01/12/18 05:40 Random Glucose 120 mg/dL (75-110) H 01/12/18 05:40 Calcium 8.5 mg/dL (8.4-10.2) 01/12/18 05:40 Total Bilirubin 1.7 mg/dl (0.2-1.3) H 01/12/18 05:40 AST 40 U/L (17-59) 01/12/18 05:40 ALT 46 U/L (21-72) 01/12/18 05:40 Alkaline Phosphatase 57 U/L (38-126) 01/12/18 05:40 Total Protein 7.1 G/DL (6.3-8.2) 01/12/18 05:40 Albumin 3.8 g/dL (3.5-5.0) 01/12/18 05:40 Globulin 3.4 gm/dL (2.2-3.9) 01/12/18 05:40 Albumin/Globulin Ratio 1.1 (1.0-2.1) 01/12/18 05:40 25-OH Vitamin D Total 19.3 NG/ML (30.0-100.0) L 01/10/18 05:40 Urine Color Yenifer (YELLOW) 01/09/18 13:57 Urine Clarity Slighty-cloudy (Clear) 01/09/18 13:57 Urine pH 5.0 (5.0-8.0) 01/09/18 13:57 Ur Specific [place] 1.025 (1.003-1.030) 01/09/18 13:57 Urine Protein 30 mg/dL (NEGATIVE) 01/09/18 13:57 Urine Glucose (UA) Neg mg/dL (Normal) 01/09/18 13:57 Urine Ketones Negative mg/dL (NEGATIVE) 01/09/18 13:57 Urine Blood Small (NEGATIVE) 01/09/18 13:57 Urine Nitrate Negative (NEGATIVE) 01/09/18 13:57 Urine Bilirubin Negative (NEGATIVE) 01/09/18 13:57 Urine Urobilinogen 4.0 mg/dL (0.2-1.0) 01/09/18 13:57 Ur Leukocyte Esterase Neg Ignacia/uL (Negative) 01/09/18 13:57 Urine RBC (Auto) 4 /hpf (0-3) H 01/09/18 13:57 Urine Microscopic WBC 3 /hpf (0-5) 01/09/18 13:57 Ur Squamous Epith Cells < 1 /hpf (0-5) 01/09/18 13:57 Hyaline Casts 6-10 /hpf (0-2) H 01/09/18 13:57 Blood Type A POSITIVE 01/09/18 13:20 Blood Type Confirm A POSITIVE 01/09/18 13:24 Antibody Screen Negative 01/09/18 13:20 BBK History Checked No verified bt 01/09/18 13:20 - Hospital Course Hospital Course: This is a 72 year old male with a pmh of atrial fibrillation on Eliquis, essential hypertension, and hypercholesterolemia, who injured his left knee and and suffered abrasions to his left elbow when he slipped and fell at work at [email or web address] prior to arrival in the ED. The patient states that he fell down 4 steps on a staircase. In the ED, the patient was sent to MRI and found to have a left quad tendon tear. He was admitted to the hospital and orthopedic consultation with Dr. Velasquez was obtained. The patient was bridged off of his Eliquis onto Lovenox during his stay. He had PT for crutch/walker ambulation preoperatively. The patient had cardiology consultation as well for preop risk assessment including echocardiogram which reveals normal left ventricular function. This morning, the patient had successful left quadriceps tendon repair and ambulated well with PT this afternoon. He is being discharged to home in stable condition. 1. Torn Quadricep Tendon of Left Knee, s/p repair today 01/12 Oxycodone given for analgesia at home Outpatient physical therapy Rest, Ice, elevate 2. AFib rate controlled Metoprolol Tatrate 25mg Q 12hrs hold Eliquis Lovenox D/C after the morning dose today in preparation for surgery in AM 3. HTN BP stable on Metoprolol, Amlodipine, HCTZ and Valsartan 4. HLD Lipitor 20mg PO 5. DVT/stroke prophylaxis - SCDs Discharge Exam - Head Exam Head Exam: ATRAUMATIC, NORMOCEPHALIC - Additional Findings Additional findings: Physical exam: Constitutional- cooperative, awake, alert Head- NCAT, PERRL Eye- PERRL, EOMI ENT- normal exam, MMM. Neck- normal inspection, supple, no JVD Respiratory- CTAB, no wheezes rales rhonchi Cardiovascular- RRR, +S1, +S2 no MRG GI/Abdominal- normal bowel sounds, soft, no mass, no hsm Skin- warm, dry Extremities Exam- Limited ROM of the left knee. normal capillary refill, normal inspection Neurological Exam- alert, awake, oriented Psych- normal mood, normal affect Discharge Plan - Discharge Medications Prescriptions: Cholecalciferol [Vitamin D 1000 IU] 2,000 intlu PO DAILY #30 tab Docusate Sodium/Sennosides A [Senokot S 50 MG-8.6 MG] 2 tab PO HS #20 tab oxyCODONE [oxyCODONE Immediate Release Tab] 10 mg PO Q6 PRN #15 tab PRN Reason: Pain, Moderate (4-7) Polyethylene Glycol 3350 [Miralax] 17 gm PO BID PRN #10 packet PRN Reason: Constipation - Follow Up Plan Condition: STABLE Disposition: HOME/ ROUTINE Instructions: Muscle Strain (DC), Lower Extremity Muscle Strain (DC), General ( DC), Knee Immobilizer (DC), Knee Immobilizer (GEN), Quadriceps Exercises (GEN) Additional Instructions: follow up with dr Saldana and your primary MD 1 week Referrals: Les Velasquez MD [Medical Doctor] -
[2018-01-12 15:50] VITALS: O2SAT 97
[2018-01-12 16:08] VITALS: BP 127/93; PULSE 90; RESP 20; TEMP 99.6
--- NOTE | 2018-01-12 16:43 | CARD ---
APPROVED REPORT Date of service: 01/09/2018 EKG Measurement Heart [id number] <Conclusion> Atrial fibrillation with premature ventricular or aberrantly conducted complexes Inferior infarct, age undetermined Abnormal ECG
--- NOTE | 2018-01-12 17:16 | CARD ---
APPROVED REPORT Date of service: 01/11/2018 EXAM: Two-dimensional and M-mode echocardiogram with Doppler and color Doppler. Other Information Quality : GoodRhythm : NSR INDICATION Pre-Op 2D DIMENSIONS IVSd1.56 (0.7-1.1cm)LVDd4.81 (3.9-5.9cm) LVOT Diameter2.15 (1.8-2.4cm)PWd0.89 (0.7-1.1cm) IVSs1.96 (0.8-1.2cm)LVDs3.35 (2.5-4.0cm) FS (%) 30.2 %PWs1.39 (0.8-1.2cm) M-Mode DIMENSIONS Left Atrium (MM)4.96 (2.5-4.0cm)IVSd1.56 (0.7-1.1cm) Aortic Root3.14 (2.2-3.7cm)LVDd4.96 (4.0-5.6cm) Aortic Cusp Exc.2.12 (1.5-2.0cm)PWd1.09 (0.7-1.1cm) IVSs1.69 cmFS (%) 34 % LVDs3.28 (2.0-3.8cm)PWs1.65 cm Aortic Valve AoV Peak Kxzzkvgm776.1cm/sAoV VTI30.5cmAO Peak GR.15mmHg LVOT Peak Jkhaanbh779.7cm/sLVOT VTI20.47cmAO Mean GR.9mmHg MARCELLO (VMAX)1.01xg8HQU (VTI)1.13cm2 Mitral Valve E/A ratio0.0 TDI E/Lateral E'0.0E/Medial E'0.0 Tricuspid Valve TR Peak [id number]/sRAP [id number] Peak Gr.8mmHg [id number] LEFT VENTRICLE The left ventricle is normal size. There is normal left ventricular wall thickness. The left ventricular function is normal.EF-55-60% There is normal LV segmental wall motion. Transmitral Doppler flow pattern is Grade II-pseudonormal filling dynamics. No left ventricle thrombus noted on this study. There is no ventricular septal defect visualized. There is no left ventricular aneurysm. There is no mass noted in the left ventricle. RIGHT VENTRICLE The right ventricle is normal size. There is normal right ventricular wall thickness. The right ventricular systolic function is normal. ATRIA The left atrium is mildly dilated. The right atrium is mildly dilated. The interatrial septum is intact with no evidence for an atrial septal defect. AORTIC VALVE The aortic valve is calcified and displays decreased opening. The aortic valve is mildly sclerotic. There is trace aortic regurgitation. There is mild to moderate valvular aortic stenosis. There is no aortic valvular vegetation. MITRAL VALVE The mitral valve is thickened but opens well. There is no evidence of mitral valve prolapse. There is no mitral valve stenosis. Mitral regurgitation is trace. TRICUSPID VALVE The tricuspid valve leaflets are thickened , but open well. There is mild tricuspid regurgitation.RVSP-18 m,mof Hg There is no tricuspid valve prolapse or vegetation. There is no tricuspid valve stenosis. PULMONIC VALVE The pulmonic valve is not well visualized. There is no pulmonic valvular regurgitation. There is no pulmonic valvular stenosis. GREAT VESSELS The aortic root is normal in size. The ascending aorta is normal in size. The pulmonary artery is normal. The IVC is normal in size and collapses >50% with inspiration. PERICARDIAL EFFUSION The pericardium appears normal. There is no pleural effusion. <Conclusion> The left ventricle is normal size. There is normal left ventricular wall thickness. The left ventricular function is normal.EF-55-60% There is trace aortic regurgitation. There is mild to moderate valvular aortic stenosis. Mitral regurgitation is trace. There is mild tricuspid regurgitation.RVSP-18 m,mof Hg The IVC is normal in size and collapses >50% with inspiration. The pericardium appears normal no vegetation or thrombus noted.
[2018-01-12] MEDS ORDERED: Docusate-Senna 50 mg-8.6 mg Tab PO SCH (22:00)
--- NOTE | 2018-01-13 03:20 | OP ---
PROCEDURE DATE: 01/12/2018 SURGEON: Les Velasquez MD CARDBOARD INSERTER: KATHERINE Palmer PREOPERATIVE DIAGNOSES: 1. Full thickness tear with displacement of left quadriceps tendon. 2. Left knee synovitis. POSTOPERATIVE DIAGNOSES: 1. Full thickness tear with displacement of left quadriceps tendon. 2. Left knee synovitis. PROCEDURES: 1. Left knee arthrotomy with synovectomy of the anterior compartment, 27556. 2. Left knee quadriceps tendon repair with Arthrex SwiveLock suture anchors, 44192. 3. Debridement of left knee muscle, tendon and patella bone, 80960. BLOOD LOSS: Minimal. ANESTHESIA: General and postoperative femoral block. COMPLICATIONS: None. SPECIMEN: None. DISPOSITION: Stable to recovery room. INDICATION: This is a 72-year-old male who presented to the Emergency Room at [facility] after a fall at work. The patient is an ambulator; however after his fall, he was unable to stand or extend his knee, had immediate pain and swelling. Initial MRI of the knee confirmed full thickness quadriceps tendon tear with retraction. The patient was seen in the emergency room and was admitted to the hospital for preoperative clearance and underwent the above surgery. Risks and benefits of the surgery were explained. Risks include, but not limited to bleeding, infection, tendon, nerve, vessel injury, instability, chronic pain, stiffness, and potential need for additional surgery in the future, re-rupture. The patient understood the above risks and elected to proceed. DESCRIPTION OF PROCEDURE: He was brought to the operating room and placed supine on the operating room table. After adequate anesthesia was given and prophylactic antibiotics, a well-padded nonsterile tourniquet was placed on the left thigh. The left leg was then elevated and prepped and draped in standard surgical fashion. A time-out was proposed. A midline incision over the anterior knee was outlined, centered over the patella and quadriceps tendon. The leg was elevated and exsanguinated. The esmarch was inflated to 300 mmHg. The incision was made through the skin only. All superficial veins were cauterized. Dissection was carried down to identify the quadriceps tendon. There was a full thickness tear of the quadriceps tendon, extending into the medial and lateral gutters of the knee with extensive hematoma and blood clot. Arthrotomy was performed over the anterior knee. Anterior knee synovectomy was performed with rongeur, curettes, and dissection. The wound was then copiously irrigated. The tendon was debrided to good healthy tissue with removal of blood clot. The proximal pole of the patella was also debrided with rongeur and curettes to good bleeding bone. The nonviable stump of the tendon was excised. Next, work was begun on repairing the tendon. A total of two FiberTape sutures were placed in a Krackow locking fashion in quadriceps tendon with four free limbs coming out of the ruptured ends. The sutures were tensioned to avoid any slacking in the repair. Next, two drill holes for SwiveLock were prepared over the proximal pole of the patella. A 4.75 SwiveLock anchor was used for the repair. A total of two anchors were used. The first anchor was seeded in the superolateral pole of the patella with tension on the superior sutures. After seeding the suture and the tendon to the superior pole, work was begun on placing the medial anchor into the patella. The medial suture limbs were placed through the anchor, and the anchor was seeded fully into the previous drill hole of the patella. There was no gapping at the repair site. The free suture limbs for both anchors were then used to add additional stability in a horizontal mattress suture configuration over the ruptured stumps of the tendon. They were tied down to the anchor providing additional stability and strength for the repair. Next, a #2 FiberWire was used to repair both the medial and lateral reticulum tears in a running suture fashion. After the repair, the knee was taken to range of motion. It was able to bend to 30 degrees without any gapping at the repair site. The knee was held in extension, copiously irrigated. The wound was then closed with 0 Vicryl sutures followed by lala for skin. Tourniquet was deflated. The patient tolerated the procedure well. A sterile dressing was applied consisting of Xeroform, 4 x 4s, Fernando and Toni bandage. The patient was extubated and returned to recovery room in excellent condition. Les Velasquez MD VIDAL
== END 2018-01-12 16:50 | disposition home or self-care (01) | DRG 489 ==
LOC: H.ER 11:24 → H.ERHOLD 15:07 → H.MEDSURG1 17:00
PROC: 0LQR0ZZ Repair Left Knee Tendon, Open Approach (ICD-10-PCS; 2018-01-12)
PROC: 0SBD0ZZ Excision of Left Knee Joint, Open Approach (ICD-10-PCS; 2018-01-12)
PROC: 3E0T3BZ Introduction of Anesthetic Agent into Peripheral Nerves and Plexi, Percutaneous Approach (ICD-10-PCS; principal; 2018-01-12 07:45)
PROC: 0QBF0ZZ Excision of Left Patella, Open Approach (ICD-10-PCS; 2018-01-12 07:45)
DX: S76.112A Strain of left quadriceps muscle, fascia and tendon, initial encounter (principal); S83.412A Sprain of medial collateral ligament of left knee, initial encounter; Y92.9 Unspecified place or not applicable; Y99.0 Civilian activity done for income or pay; Z79.01 Long term (current) use of anticoagulants; I48.91 Unspecified atrial fibrillation; I10 Essential (primary) hypertension; E78.00 Pure hypercholesterolemia, unspecified; E78.5 Hyperlipidemia, unspecified; S83.522A Sprain of posterior cruciate ligament of left knee, initial encounter; M25.462 Effusion, left knee; E55.9 Vitamin D deficiency, unspecified; K59.00 Constipation, unspecified; M65.9 Synovitis and tenosynovitis, unspecified; S50.312A Abrasion of left elbow, initial encounter; W10.9XXA Fall (on) (from) unspecified stairs and steps, initial encounter